=== PATIENT | male | born 1975 | race Two or more races ===

== ENCOUNTER 2020-01-22 12:02 | Inpatient (IN) | payer SELFPAY ==
[~2020-01-22] VITALS: Ht 177.8 cm; Wt 81.6 kg
[2020-01-22 12:36] LABS: BASOPHILS 0.2 % (0-2); EOSINOPHILS 0.2 % (0-7); HEMATOCRIT 43.5 % (42.0-54.0); HEMOGLOBIN 14.8 g/dL (13.5-17.5); IMMATURE GRANULOCYTES 0.2 % (0-5); MCH 30.4 pg (26.0-34.0); MCV 89.3 fL (80.0-100.0); MEAN PLATELET VOLUME 12.6 fL (7.4-10.4); MONOCYTES 8.1 % (2-11); NEUTROPHILS 81.3 % (40-80); PLATELET COUNT 188 10x3/uL (130-400); RBC 4.87 10x6/uL (4.20-6.10); RDW 15.1 % (11.5-14.5); WBC 6.5 10x3/uL (4.8-10.8)
[2020-01-22 12:37] LABS: CALC OSMOLALITY 278 mosm/kg (275-300); CALCIUM 8.5 mg/dL (8.5-10.1); CARBON DIOXIDE 31.9 mmol/L (21.0-32.0); CHLORIDE - SERUM 104 mmol/L (98-107); CREATININE - SERUM 0.8 mg/dL (0.6-1.3); GLUCOSE 96 mg/dL (74-106); POTASSIUM - SERUM 3.5 mmol/L (3.5-5.1); SODIUM 140 mmol/L (136-145); UREA NITROGEN 13 mg/dL (7-18); eGFR NON AFRICAN AMERICAN > 90 mL/min (90-120)
[2020-01-22 12:42] LABS: APTT 34.3 SECONDS (22.8-39.4); INR 1.04 (0.85-1.17); PROTIME 13.6 SECONDS (11.6-15.0)
[2020-01-22 12:54] LABS: ALBUMIN 3.6 g/dL (3.4-5.0); ALKALINE PHOSPHATASE 82 U/L (30-120); ALT (SGPT) 31 U/L (10-68); AMYLASE - SERUM 195 U/L (25-115); BILIRUBIN - TOTAL 0.54 mg/dL (0.2-1.3); CKMB 0.6 U/L (0.0-3.6); CREATINE KINASE 138 UL (21-232); LIPASE 761 U/L (73-393); MAGNESIUM - SERUM 2.2 mg/dL (1.8-2.4); PROTEIN - SERUM 7.3 g/dL (6.4-8.2)
[2020-01-22 12:57] LABS: TROPONIN-I < 0.017 ng/mL (0.000-0.060)
[2020-01-22 13:31] VITALS: BP 105/65
--- NOTE | 2020-01-22 13:44 | NUR ---
URINE TO LAB
[2020-01-22 13:52] LABS: BILIRUBIN NEGATIVE (NEGATIVE); GLUCOSE NEGATIVE (NEGATIVE); KETONE NEGATIVE (NEGATIVE); NITRITE NEGATIVE (NEGATIVE); SPECIFIC GRAVITY 1.005 (1.005-1.020); UROBILINOGEN NORMAL (NORMAL)
[2020-01-22 14:57] VITALS: BP 118/67
[2020-01-22 17:34] VITALS: BP 99/66
--- NOTE | 2020-01-22 18:04 | NUR ---
THIS NURSE STARTED LEVAQUIN BEFORE TAKING PT TO FLOOR ROOM. REPORT TO TYE CHRISTENSEN
[2020-01-22 20:00] VITALS: BP 111/64
[2020-01-22 21:56] VITALS: BMI 25.8
[2020-01-23] VITALS: BP 108/68
[2020-01-23 04:00] VITALS: BP 92/57
[2020-01-23 04:38] LABS: BASOPHILS 0 % (0-2); EOSINOPHILS 0.5 % (0-7); HEMATOCRIT 39.8 % (42.0-54.0); HEMOGLOBIN 13.2 g/dL (13.5-17.5); IMMATURE GRANULOCYTES 0.2 % (0-5); LYMPHOCYTES 21.4 % (15-50); MCH 29.7 pg (26.0-34.0); MCHC 33.2 g/dL (31.0-37.0); MCV 89.6 fL (80.0-100.0); MEAN PLATELET VOLUME 12.7 fL (7.4-10.4); MONOCYTES 11.1 % (2-11); NEUTROPHILS 66.8 % (40-80); PLATELET COUNT 166 10x3/uL (130-400); RBC 4.44 10x6/uL (4.20-6.10); RDW 14.9 % (11.5-14.5); WBC 6.1 10x3/uL (4.8-10.8)
[2020-01-23 04:57] LABS: ALBUMIN 2.9 g/dL (3.4-5.0); ALKALINE PHOSPHATASE 65 U/L (30-120); ALT (SGPT) 30 U/L (10-68); BILIRUBIN - TOTAL 0.38 mg/dL (0.2-1.3); CALC OSMOLALITY 274 mosm/kg (275-300); CALCIUM 7.6 mg/dL (8.5-10.1); CARBON DIOXIDE 25.9 mmol/L (21.0-32.0); CHLORIDE - SERUM 106 mmol/L (98-107); CREATININE - SERUM 0.8 mg/dL (0.6-1.3); GLUCOSE 69 mg/dL (74-106); POTASSIUM - SERUM 3.5 mmol/L (3.5-5.1); SODIUM 139 mmol/L (136-145); UREA NITROGEN 10 mg/dL (7-18); eGFR NON AFRICAN AMERICAN > 90 mL/min (90-120)
[2020-01-23 08:23] VITALS: BP 111/64
[2020-01-23 09:44] VITALS: Ht 177.8 cm; Wt 81.6 kg
[2020-01-23 12:27] VITALS: BP 111/62
--- NOTE | 2020-01-23 12:34 | NUR ---
I have reviewed this patient and I concur with the Shift Assessment completed by the Licensed Practical Nurse today this shift.
[2020-01-23 16:26] VITALS: BP 104/57
--- NOTE | 2020-01-23 18:32 | NUR ---
c/o generalized pain rating 7/10 on pain scale was medicated with morphine per orders.
[2020-01-23 19:30] VITALS: BP 134/65
[2020-01-24] VITALS: BP 121/68
--- NOTE | 2020-01-24 02:37 | NUR ---
I have reviewed this patient and I concur with the Shift Assessment completed by the Licensed Practical Nurse today this shift.
[2020-01-24 04:00] VITALS: BP 138/69
--- NOTE | 2020-01-24 04:53 | NUR ---
PT RESTING IN BED. EYES CLOSED. NO SIGNS OF DISTRESS. BREATHING EVEN AND UNLABORED. IV SITE LT AC DRESSING CLEAN DRY AND INTACT. NO SIGNS OF INFECTION OR INFULTRATION. LUNG SOUNDS CLEAR. BOWEL SOUNDS ACTIVE. ABD TENDERNESS. SKIN CLEAN DRY AND INTACT. WILL CONTINUE PLAN OF CARE. CALL LIGHT IN REACH. BED LOWERED AND LOCKED. BED RAILS UPX2.
[2020-01-24 05:58] LABS: BASOPHILS 0.4 % (0-2); EOSINOPHILS 1.5 % (0-7); HEMATOCRIT 41.1 % (42.0-54.0); HEMOGLOBIN 13.7 g/dL (13.5-17.5); IMMATURE GRANULOCYTES 0.2 % (0-5); LYMPHOCYTES 31.4 % (15-50); MCH 29.8 pg (26.0-34.0); MCHC 33.3 g/dL (31.0-37.0); MCV 89.3 fL (80.0-100.0); MEAN PLATELET VOLUME 12.5 fL (7.4-10.4); MONOCYTES 13.8 % (2-11); NEUTROPHILS 52.7 % (40-80); PLATELET COUNT 197 10x3/uL (130-400); WBC 4.8 10x3/uL (4.8-10.8)
[2020-01-24 06:29] LABS: CALC OSMOLALITY 285 mosm/kg (275-300); CARBON DIOXIDE 31.2 mmol/L (21.0-32.0); CHLORIDE - SERUM 107 mmol/L (98-107); CREATININE - SERUM 0.9 mg/dL (0.6-1.3); GLUCOSE 96 mg/dL (74-106); POTASSIUM - SERUM 3.6 mmol/L (3.5-5.1); SODIUM 145 mmol/L (136-145); eGFR NON AFRICAN AMERICAN > 90 mL/min (90-120)
[2020-01-24 06:54] LABS: LIPASE 60 U/L (73-393); UREA NITROGEN 5 mg/dL (7-18)
--- NOTE | 2020-01-24 07:45 | NUR ---
PT SITTING UP IN BED WATCHING TV. RESP EVEN AND UNLABORED. PT DENIES PAIN AT THIS TIME. IV TO NS @ 125ML/HR INFUSING VIA PUMP. SITE WITHOUT REDNESS OR EDEMA. REPORTS TENDERNESS IN ABDOMEN UPON PALPATION. PT DENIES FURTHER NEEDS AT THIS TIME. CL WITHIN REACH. ENCOURAGED TO CALL WITH NEEDS. CONT POC
[2020-01-24] MEDS ORDERED: LEVAQUIN750 MG PO (08:55)
[2020-01-24] MEDS ORDERED: FLAGYL500 MG PO (08:56)
[2020-01-24 10:00] VITALS: BP 110/62
--- NOTE | 2020-01-24 10:40 | NUR ---
PT SITTING UP IN BED. NO ACUTE DISTRESS NOTED. DENIES PAIN AT THIS TIME. INSTRUCTED PT OF DISCHARGE. HE VOICES UNDERSTANDING AND CONTACTS FAMILY FOR RIDE HOME. PT DENIES FURTHER NEEDS AT THIS TIME. CL WITHIN REACH.
--- NOTE | 2020-01-24 11:00 | NUR ---
PT PROVIDED DISCHARGE INSTRUCTIONS. DISCUSSED FOLLOW UP CARE WITH PCP, APPOINTMENT IN J[place] FOR CT SCAN AND PRESCRIPTIONS TO BE PICKED UP AT [facility] TO CONTINUE AT DISCHARGE. PT VOICES UNDERSTANDING OF ALL INSTRUCTIONS AND REPEATS BACK TO STAFF INSTRUCTIONS PROVIDED. IV DISCONTINUED FROM LEFT AC, CATH INTACT. PT AWAITING RIDE HOME.
--- NOTE | 2020-01-24 11:26 | NUR ---
PT TAKEN OUT VIA W/C FOR D/C WITH ALL PERSONAL BELONGINGS.
== END 2020-01-24 11:28 | disposition home or self-care (01) | DRG 385 ==
LOC: D.ER 12:02 → D.MS 16:04
PROVIDERS: Family Medicine; ADMIT Internal Medicine Nephrology; ATTEND Internal Medicine Nephrology
DX: K51.00 Ulcerative (chronic) pancolitis without complications (principal); K85.90 Acute pancreatitis without necrosis or infection, unspecified; K86.2 Cyst of pancreas